=== PATIENT | female | born 1980 | race Caucasian/White ===

== ENCOUNTER 2016-07-22 13:11 | Emergency (ER) | payer OTHER ==
[2016-07-22 13:11] VITALS: BMI 28.3
[2016-07-22 13:20] VITALS: BP 146/77; PULSE 77; RESP 16; TEMP 98.6; O2SAT 100
--- NOTE | 2016-07-22 14:10 | ED PDOC ---
HPI: Skin/Bite Injury Time Seen by Provider: 07/22/16 13:23 Chief Complaint (Nursing): Abnormal Skin Integrity Chief Complaint (Provider): Rash left flank x 2 weeks History Per: Patient History/Exam Limitations: no limitations Onset/Duration Of Symptoms: Days Current Symptoms Are (Timing): Still Present Quality Of Symptoms: Itching Severity: Mild Pain Scale Rating Of: 3 Additional Complaint(s): Pt states she has been putting antibiotic ointment but it did not help. Past Medical History Reviewed: Historical Data, Nursing Documentation, Vital Signs Vital Signs: Last Vital Signs Temp 98.6 F 07/22/16 13:18 Pulse 77 07/22/16 13:18 Resp 16 07/22/16 13:18 BP 146/77 07/22/16 13:18 Pulse Ox 100 07/22/16 19:21 - Medical History PMH: No Chronic Diseases - Surgical History Surgical History: Cholecystectomy - Family History Family History: States: Unknown Family Hx - Living Arrangements Living Arrangements: With Family - Social History Current smoker - smoking cessation education provided: No - Home Medications Home Medications: Ambulatory Orders Medication Instructions Recorded Clindamycin [Cleocin] 300 mg PO TID #21 cap 01/14/14 Ibuprofen [Motrin] 600 mg PO Q6 PRN #20 tab 08/23/14 Hydrocortisone 1% Cream [Cortizone 1 / TP BID #1 tube 07/22/16 1% Cream] - Allergies Allergies/Adverse Reactions: Allergies Allergy/AdvReac Type Severity Reaction Status Date / Time No Known Allergies Allergy Verified 01/14/14 16:44 Review of Systems ROS Statement: Except As Marked, All Systems Reviewed And Found Negative Skin: Positive for: Rash Physical Exam - Reviewed Nursing Documentation Reviewed: Yes Vital Signs Reviewed: Yes - Physical Exam Appears: Positive for: Well, Non-toxic, No Acute Distress Head Exam: Positive for: ATRAUMATIC, NORMAL INSPECTION, NORMOCEPHALIC Skin: Positive for: Warm. Negative for: Normal Color ((+) dried skin, left flank, no surrounding erythema ) Eye Exam: Positive for: Normal appearance ENT: Positive for: Normal ENT Inspection Neck: Positive for: Normal, Painless ROM Cardiovascular/Chest: Positive for: Regular Rate, Rhythm Respiratory: Positive for: CNT, Normal Breath Sounds Gastrointestinal/Abdominal: Positive for: Normal Exam, Bowel Sounds, Soft Back: Positive for: Normal Inspection Extremity: Positive for: Normal ROM Neurologic/Psych: Positive for: Alert, Oriented - ECG O2 Sat by Pulse Oximetry: 100 Disposition - Clinical Impression Clinical Impression: Rash - Patient ED Disposition Is Patient to be Admitted: No Counseled Patient/Family Regarding: Diagnosis, Need For Followup, Rx Given - Disposition Referrals: FAMILY PROVIDER,NO [Primary Care Provider] - [facility] [Outside] Disposition: Routine/Home Disposition Time: 14:04 Condition: GOOD Prescriptions: Hydrocortisone 1% Cream [Cortizone 1% Cream] 1 / TP BID #1 tube Instructions: Acute Rash (ED) Print Language: BENGALI
== END 2016-07-22 14:10 | disposition home or self-care (01) ==
LOC: H.ER 13:11
DX: R21 Rash and other nonspecific skin eruption (principal)

== ENCOUNTER 2016-10-19 18:42 | Emergency (ER) | payer OTHER ==
[2016-10-19 18:43] VITALS: BMI 28.3
[2016-10-19 19:01] VITALS: BP 108/65; PULSE 65; RESP 19; TEMP 98.4; O2SAT 100
[2016-10-19] MEDS ORDERED: DiphenhydrAMINE 50 mg/ml Inj IVP STA (19:51)
[2016-10-19 20:00] LABS: SQUAMOUS EPITHIAL 24 /hpf (0-5); URINE BACTERIA RARE (<OCC); URINE BILIRUBIN NEGATIVE (NEGATIVE); URINE BLOOD LARGE (NEGATIVE); URINE CLARITY CLOUDY (Clear); URINE COLOR AMBER (YELLOW); URINE GLUCOSE (UA) NEG (Normal); URINE LEUKOCYTE ESTERASE SMALL Leu/uL (Negative); URINE NITRATE NEGATIVE (NEGATIVE); URINE PROTEIN 100 mg/dL (NEGATIVE); URINE UROBILINOGEN 0.2-1.0 mg/dL (0.2-1.0)
[2016-10-19] MEDS ORDERED: DiphenhydrAMINE 50 mg/ml Inj ONE (20:06)
[2016-10-19 20:14] LABS: BASO # 0.1 K/uL (0.0-0.2); BASO % 0.6 % (0.0-2.0); EOS # 0.2 K/uL (0.0-0.7); EOS % 2.3 % (0.0-4.0); LYMPH # 2.4 K/uL (1.0-4.3); MEAN CELL VOLUME 91.5 fl (81.0-99.0); MEAN CORPUSCULAR HGB CONC 33.9 g/dL (33.0-37.0); MEAN PLATELET VOLUME 9.5 fl (7.2-11.7); MONO # 0.6 K/uL (0.0-0.8); NEUT % 61.1 % (50.0-75.0); RBC 4.21 Mil/uL (3.80-5.20); RED CELL DISTRIBUTION WIDTH 12.7 % (11.5-14.5); WHITE BLOOD COUNT 8.2 K/uL (4.8-10.8)
[2016-10-19 20:16] LABS: BARBITURATES, UR NEGATIVE (NEGATIVE); BENZODIAZEPINES, UR NEGATIVE (NEGATIVE); OPIATES, UR NEGATIVE (NEGATIVE); PHENCYCLIDINE, UR NEGATIVE (NEGATIVE)
[2016-10-19 20:42] LABS: ALB/GLOB RATIO 1.4 (1.0-2.1); ALBUMIN 4.3 g/dL (3.5-5.0); ALT/SGPT 32 U/L (9-52); AST/SGOT 20 U/L (14-36); BLOOD UREA NITROGEN 16 mg/dl (7-17); CALCIUM 9.1 mg/dL (8.4-10.2); GFR AFRICAN-AMERICAN > 60; GFR NON-AFRICAN AMERICAN > 60
--- NOTE | 2016-10-19 21:16 | CT ---
EXAM: CT Head Without Intravenous Contrast CLINICAL HISTORY: 36 years old, female; Pain; Headache; Headache not specified; Additional info: Dizziness headache TECHNIQUE: Axial computed tomography images of the head/brain without intravenous contrast. This CT exam was performed using one or more of the following dose reduction techniques: automated exposure control, adjustment of the mA and/or kV according to patient size, and/or use of iterative reconstruction technique. Coronal and sagittal reformatted images were created and reviewed. EXAM DATE/TIME: 10/19/2016 7:52 PM COMPARISON: No relevant prior studies available. FINDINGS: BRAIN: No significant acute abnormality identified. No acute hemorrhage seen within the brain. No acute extra-axial fluid collections visualized. No evidence of significant mass effect within the brain. Normal alegria-white matter differentiation. VENTRICLES: No evidence of significant hydrocephalus. BONES/JOINTS: No acute fractures or other acute bony abnormality noted. SOFT TISSUES: No acute abnormality of the visualized soft tissues is seen. SINUSES: Visualized paranasal sinuses appear clear. MASTOID AIR CELLS: Mastoid air cells appear clear. IMPRESSION: - No acute findings seen within the brain. - See above for remaining findings.
--- NOTE | 2016-10-19 21:21 | ED PDOC ---
HPI: Headache Time Seen by Provider: 10/19/16 19:25 Chief Complaint (Nursing): Headache Chief Complaint (Provider): Headache History Per: Patient History/Exam Limitations: no limitations Onset/Duration Of Symptoms: Days (x2 weeks) Current Symptoms Are (Timing): Still Present Additional Complaint(s): 36 y/o female presents to the emergency department with a complaint of a constant ongoing posterior and forehead pressure like headache x2 weeks. Associated with dizziness, nausea, and intermittent paresthesia to the left hand that last about 3-4 minutes. Reports taking ibuprofen with minimal relief of pain. States she had experienced similar headache about 1 year ago and saw her own primary care physician who prescribed her medications (does not remember the name) with no other workup completed. Denies vomiting, focal weakness, numbness, or blurry vision. Past Medical History Reviewed: Historical Data, Nursing Documentation, Vital Signs Vital Signs: Last Vital Signs Temp 98.4 F 10/19/16 18:58 Pulse 65 10/19/16 18:58 Resp 19 10/19/16 18:58 BP 108/65 10/19/16 18:58 Pulse Ox 100 10/19/16 18:58 - Medical History PMH: No Chronic Diseases - Surgical History Surgical History: Cholecystectomy - Family History Family History: States: Unknown Family Hx - Social History Current smoker - smoking cessation education provided: No Alcohol: None Drugs: Denies - Home Medications Home Medications: Ambulatory Orders Medication Instructions Recorded Clindamycin [Cleocin] 300 mg PO TID #21 cap 01/14/14 Ibuprofen [Motrin] 600 mg PO Q6 PRN #20 tab 08/23/14 Hydrocortisone 1% Cream [Cortizone 1 / TP BID #1 tube 07/22/16 1% Cream] Acetaminophen/Butalbital/Caf 1 tab PO TID PRN #20 tab 10/19/16 [Fioricet] - Allergies Allergies/Adverse Reactions: Allergies Allergy/AdvReac Type Severity Reaction Status Date / Time No Known Allergies Allergy Verified 01/14/14 16:44 Review of Systems ROS Statement: Except As Marked, All Systems Reviewed And Found Negative Eyes: Negative for: Vision Change (Blurry vision) Gastrointestinal: Positive for: Nausea. Negative for: Vomiting Musculoskeletal: Positive for: Hand Pain (Paresthesia of the left hand that last 3-4 minutes) Neurological: Positive for: Headache, Dizziness. Negative for: Weakness (Focal) , Numbness Physical Exam - Reviewed Nursing Documentation Reviewed: Yes Vital Signs Reviewed: Yes - Physical Exam Appears: Positive for: Non-toxic, In Acute Distress (Mild painful distress) Head Exam: Positive for: ATRAUMATIC, NORMAL INSPECTION, NORMOCEPHALIC Skin: Positive for: Normal Color, Warm, Dry Eye Exam: Positive for: Normal appearance, EOMI, PERRL. Negative for: Nystagmus Cardiovascular/Chest: Positive for: Regular Rate, Rhythm. Negative for: Murmur Respiratory: Positive for: Normal Breath Sounds. Negative for: Accessory Muscle Use, Respiratory Distress Extremity: Positive for: Normal ROM (Light touch intact in all nerve distribution of hands. ), Capillary Refill (Less than 2 second cap refill. Strong radial pulses. ). 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 ), Other (Speech is normal. ). Negative for: Motor/Sensory Deficits - Laboratory Results Result Diagrams: 10/19/16 20:02 10/19/16 20:02 - ECG O2 Sat by Pulse Oximetry: 100 (RA) Pulse Ox Interpretation: Normal Medical Decision Making Medical Decision Making: Time: 19:28 Initial impression: Headache differential include migraine, tension headache, electrolyte abnormality, dehydration, anemia, and brain mass. Initial plan: --ED urine dipstick (POC) --ED urine --Benadryl 25 mg IVP --Promethazine 25 mg IV --IV insertion --Head w/o contrast CT --COMP Metabolic Panel --Drug Screen, Urine --CBC w. differential --Urinalysis STAT --Reevaluation Time: 21:15 --Head CT FINDINGS: BRAIN: No significant acute abnormality identified. No acute hemorrhage seen within the brain. No acute extra-axial fluid collections visualized. No evidence of significant mass effect within the brain. Normal alegria-white matter differentiation. VENTRICLES: No evidence of significant hydrocephalus. BONES/JOINTS: No acute fractures or other acute bony abnormality noted. SOFT TISSUES: No acute abnormality of the visualized soft tissues is seen. SINUSES: Visualized paranasal sinuses appear clear. MASTOID AIR CELLS: Mastoid air cells appear clear. IMPRESSION: - No acute findings seen within the brain. - See above for remaining findings. Labs unremarkable. 10p On reeval pt feels better. Scribe Attestation: Documented by Celestina Ron, acting as a scribe for Luna Ruiz MD. Provider Scribe Attestation: All medical record entries made by the Scribe were at my direction and personally dictated by me. I have reviewed the chart and agree that the record accurately reflects my personal performance of the history, physical exam, medical decision making, and the department course for this patient. I have also personally directed, reviewed, and agree with the discharge instructions and disposition. Disposition - Clinical Impression Clinical Impression: Headache Counseled Patient/Family Regarding: Studies Performed, Diagnosis, Need For Followup, Rx Given - Disposition Referrals: [facility] [Outside] Disposition: Routine/Home Disposition Time: 22:00 Condition: IMPROVED Prescriptions: Acetaminophen/Butalbital/Caf [Fioricet] 1 tab PO TID PRN #20 tab PRN Reason: Headache Instructions: General Headache (ED) Forms: [facility] School/Work Excuse Print Language: IRISH
== END 2016-10-19 22:33 | disposition home or self-care (01) ==
LOC: H.ER 18:42
DX: R51 Headache (principal); R11.0 Nausea; R20.2 Paresthesia of skin